=== PATIENT | female | born 1960 | race Caucasian/White ===

== ENCOUNTER 2020-07-26 14:57 | Outpatient (REF) | payer OTHER, SELFPAY ==
[2020-07-26 17:14] LABS: Alanine Aminotransferase 23 U/L (0-31); Albumin Level 4.5 g/dL (3.5-5.0); Alkaline Phosphatase 87 U/L (39-117); Anion Gap 12 (12-20); Aspartate Amino Transferase 27 U/L (5-31); Bilirubin Total 0.3 mg/dL (0.0-1.0); Blood Urea Nitrogen 10 mg/dL (9-16); Calcium 9.3 mg/dL (8.4-10.2); Carbon Dioxide 31 mmol/L (22-29); Chloride 101 mmol/L (96-108); Estimated Glomerular Filt Rate > 60; Glucose Random 88 mg/dL (60-115); Potassium 4.1 mmol/l (3.3-5.1); Sodium 140 mmol/L (135-145); Total Protein 7.7 g/dL (6.5-8.0)
[2020-07-26 17:29] LABS: TSH reflex Free T4 2.59 mIU/mL (0.32-4.0)
== END 2020-07-26 14:58 | disposition home or self-care (01) ==
LOC: HO.HMGCLDS 14:57
PROVIDERS: PCP Family Medicine; Visit Provider Family Medicine
DX: E03.9 Hypothyroidism, unspecified (principal); Z00.00 Encounter for general adult medical examination without abnormal findings
CPT/HCPCS: 80053; 84443

== ENCOUNTER 2020-10-16 12:01 | Outpatient (REF) | payer OTHER, SELFPAY ==
--- NOTE | ~2020-10-16 | XR_ITS ---
EXAMINATION: XR LUMBOSACRAL SPINE CLINICAL INFORMATION: Low back pain. COMPARISON: None TECHNIQUE: Three views of the lumbosacral spine. FINDINGS: There is maintained lumbar lordosis. The vertebral heights, alignment and disc heights are normal. No visible acute fracture, dislocation or subluxation seen. No lytic or sclerotic process. There is mild bilateral L5-S1 facet joint arthropathy. The SI joints are symmetrical. XR/XR lumbar spine 2-3V IMPRESSION: Mild bilateral L5-S1 facet joint arthropathy. Otherwise, unremarkable lumbar spine exam.
== END 2020-10-16 12:02 | disposition home or self-care (01) ==
LOC: HO.HMGCX 12:01
PROVIDERS: PCP Internal Medicine; Visit Provider Internal Medicine
DX: M54.5 Low back pain (principal)
CPT/HCPCS: 72100

== ENCOUNTER 2020-12-31 08:52 | Outpatient (REF) | payer OTHER, SELFPAY ==
--- NOTE | ~2020-12-31 | MM_ITS ---
EXAMINATION: MM SCREENING DIGITAL BREAST TOMOSYNTHESIS, BILATERAL CLINICAL INFORMATION: Screening. Asymptomatic. The lifetime risk of breast cancer based on the Tyrer-Cuzick Model is 8%. COMPARISON: Outside mammography: 02/01/2015, 04/10/2013 ([facility]) TECHNIQUE: Digital breast tomosynthesis is performed in both the craniocaudal and mediolateral oblique views along with computer-aided detection (CAD). Synthesized 2D images are generated from the tomosynthesis. FINDINGS: There are scattered areas of fibroglandular density (ACR BI-RADS breast composition Category b). Breast tissue composition borders on predominantly fatty. There is intramammary node again seen mid 9:00 right breast. Neither breast shows significant mass or architectural abnormality or abnormal calcifications. No significant changes. The axilla and skin contours are unremarkable. MM/MM tomosynthesis screening BI IMPRESSION: No mammographic evidence of malignancy. ASSESSMENT: BI-RADS 2: Benign RECOMMENDATION: Routine annual mammography screening. This patient's information was entered into a reminder system with a target due date for their next mammogram.
== END 2020-12-31 08:53 | disposition home or self-care (01) ==
LOC: HO.MAMMO 08:52
PROVIDERS: PCP Internal Medicine; Visit Provider Internal Medicine
DX: Z12.31 Encounter for screening mammogram for malignant neoplasm of breast (principal)
CPT/HCPCS: 77063; 77067

== ENCOUNTER 2021-03-22 10:58 | Outpatient (REF) | payer OTHER, SELFPAY ==
[2021-03-22 13:43] LABS: Hematocrit 36.2 % (37-47); Hemoglobin 11.7 g/dl (12.0-16.0); Mean Corpuscular HGB Conc 32.3 g/dl (31.0-35.0); Mean Corpuscular Hemoglobin 28.7 pg (27.0-33.0); Mean Corpuscular Volume 88.9 fL (80-98); Mean Platelet Volume 10.8 fL (9.4-12.3); Platelet Count 318 X10*3/uL (160-400); Red Blood Count 4.07 X10*6/uL (4.20-5.50); Red Cell Distribution Width 12.9 % (11.0-16.0); White Blood Count 7.9 X10*3/uL (4.8-10.8)
[2021-03-22 13:44] LABS: Cholesterol 216 mg/dL; HDL Cholesterol 46 mg/dL; LDL Cholesterol Calculated 144 mg/dl; Triglycerides 133 mg/dL
[2021-03-22 14:05] LABS: TSH reflex Free T4 3.09 uIU/mL (0.32-4.0)
== END 2021-03-22 10:59 | disposition home or self-care (01) ==
LOC: HO.HMGCLDS 10:58
PROVIDERS: PCP Internal Medicine; Visit Provider Internal Medicine
DX: Z00.00 Encounter for general adult medical examination without abnormal findings (principal); E03.9 Hypothyroidism, unspecified; E78.5 Hyperlipidemia, unspecified; M54.5 Low back pain
CPT/HCPCS: 36415; 80061; 84443; 85027

== ENCOUNTER 2021-09-20 10:59 | Outpatient (REF) | payer OTHER, SELFPAY ==
[2021-09-20 13:32] LABS: Alanine Aminotransferase 39 U/L (0-31); Albumin Level 4.3 g/dL (3.5-5.0); Alkaline Phosphatase 77 U/L (39-117); Anion Gap 14 (12-20); Aspartate Amino Transferase 45 U/L (5-31); Bilirubin Total 0.5 mg/dL (0.0-1.0); Blood Urea Nitrogen 13 mg/dL (9-16); Calcium 9.7 mg/dL (8.4-10.2); Carbon Dioxide 28 mmol/L (22-29); Chloride 103 mmol/L (96-108); Cholesterol 233 mg/dL; Estimated Glomerular Filt Rate > 60; Glucose Fasting 97 mg/dL (60-99); HDL Cholesterol 50 mg/dL; LDL Cholesterol Calculated 155 mg/dl; Potassium 4.6 mmol/L (3.3-5.1); Sodium 140 mmol/L (135-145); Total Protein 7.5 g/dL (6.5-8.0); Triglycerides 143 mg/dL
== END 2021-09-20 11:00 | disposition home or self-care (01) ==
LOC: HO.HMGCLDS 10:59
PROVIDERS: Visit Provider Internal Medicine
DX: E03.9 Hypothyroidism, unspecified (principal); E78.5 Hyperlipidemia, unspecified
CPT/HCPCS: 36415; 80053; 80061

== ENCOUNTER 2021-11-12 14:09 | Outpatient (REF) | payer OTHER, SELFPAY ==
--- NOTE | ~2021-11-12 | XR_ITS ---
EXAMINATION: BILATERAL HAND X-RAY CLINICAL INFORMATION: Bilateral hand pain COMPARISON: None TECHNIQUE: 4 views each hand FINDINGS: Left: Bone alignment is normal. No fracture or dislocation is seen. There is arthritis at the first ALF joint. Joint spaces are otherwise normal. Soft tissues are normal. Right: Bone alignment is normal. No fracture or dislocation is seen. There is arthritis at the first ALF joint and DIP joint of the second and fifth finger. Joint spaces are otherwise normal. Soft tissues are normal. XR/XR hand LT min 3V IMPRESSION: Arthritis at the bilateral first ALF joints, left greater than right. Mild arthritis at the DIP joint second and fifth fingers.
--- NOTE | ~2021-11-12 | XR_ITS ---
EXAMINATION: BILATERAL HAND X-RAY CLINICAL INFORMATION: Bilateral hand pain COMPARISON: None TECHNIQUE: 4 views each hand FINDINGS: Left: Bone alignment is normal. No fracture or dislocation is seen. There is arthritis at the first JAIL joint. Joint spaces are otherwise normal. Soft tissues are normal. Right: Bone alignment is normal. No fracture or dislocation is seen. There is arthritis at the first JAIL joint and DIP joint of the second and fifth finger. Joint spaces are otherwise normal. Soft tissues are normal. XR/XR hand RT min 3V IMPRESSION: Arthritis at the bilateral first JAIL joints, left greater than right. Mild arthritis at the DIP joint second and fifth fingers.
== END 2021-11-12 14:10 | disposition home or self-care (01) ==
LOC: HO.HOSX 14:09
PROVIDERS: PCP Internal Medicine; Visit Provider Physician Assistant
DX: M79.642 Pain in left hand (principal); M79.641 Pain in right hand; M67.40 Ganglion, unspecified site
CPT/HCPCS: 73130

== ENCOUNTER 2021-11-27 09:58 | Day surgery (SDC) | payer OTHER, SELFPAY ==
[2021-11-27 10:09] VITALS: BP 133/65; PULSE 65; RESP 16; TEMP 36.6; O2SAT 95; BMI 49.1
--- NOTE | 2021-11-27 11:08 | W.PM.OPN ---
Operative Note Operative Note Date of Service: 11/27/21 Narrative: Operative Note Preop diagnosis: 1. Left middle finger DIP joint osteoarthritis and mucous cyst Postop diagnosis: 1. same Procedure: 1. Left middle finger mucous cyst excision Surgeon: Nimisha Rojas MD Anesthesia: Digital block using 1% lidocaine with epinephrine Findings: mucous cyst, EBL: Less than 5 mL Tourniquet time: None Specimens: None Complications: None Disposition: Brought to recovery room in stable condition Plan: Follow-up for 7-10 days for wound check and suture removal Indications: The patient is 61 years old, with left middle finger D IP joint osteoarthritis and a mucous cyst that has been unresponsive to nonoperative management. The risks and benefits of operative treatment including but not limited to risk of damage to blood vessels, nerves, tendons, infection, persistent pain, persistent symptoms, recurrence or possible need for additional surgery were discussed with the patient and the patient wishes to proceed with surgery. Procedure: Once consent was obtained a digital block was performed in the preop area using a combination of 1% lidocaine with epinephrine. The patient was then brought back to the operating suite and placed on the operative table in supine position. A tourniquet was applied to the proximal aspect of the left upper extremity and the limb was prepped and draped in a standard surgical fashion. Once assured that we had a good block, a finger tourniquet was applied for few or than 20 minutes. An L-shaped incision was made over the dorsal aspect of the left middle finger distal phalanx. The incision was made through the skin to the subcutaneous tissues using a #15 blade. Careful dissection was made down to the level of the mucous cyst and extensor mechanism using iris scissors. The cyst had ruptured perhaps 2 weeks ago, was very small and was filled with clear viscous fluid consistent with a ganglion. This cystic material was removed from proximal to the eponychial fold. A rongeur was used to carefully remove some of the tissue felt to be the stalk coming from the radial aspect of the D IP joint. No significant periarticular osteophytes were appreciated, and so we did not perform an arthrotomy. Once satisfied, the wound was copiously irrigated with normal saline and hemostasis was obtained with a brief period of local pressure. The skin edges were reapproximated with some 5.0 Prolene suture material and a sterile dressing was applied. The patient appears to have tolerated the procedure well and with no complications. All digits were well vascularized at the conclusion of the case.
[2021-11-27 11:53] VITALS: BP 123/80; PULSE 60; RESP 16; TEMP 36.2; O2SAT 95
== END 2021-11-27 11:58 | disposition home or self-care (01) ==
PROVIDERS: PCP Internal Medicine; Visit Provider Orthopaedic Surgery
PROC: (CPT 26160; principal; 2021-11-27 11:00)
DX: M67.442 Ganglion, left hand (principal); M19.042 Primary osteoarthritis, left hand; L03.012 Cellulitis of left finger; Z79.899 Other long term (current) drug therapy; Z88.0 Allergy status to penicillin; Z88.2 Allergy status to sulfonamides; Z87.891 Personal history of nicotine dependence
CPT/HCPCS: 26160; J0171

== ENCOUNTER → 2021-12-16 15:45 | Outpatient (BNVA) | payer OTHER, SELFPAY | PROVIDERS: PCP Internal Medicine; Visit Provider Orthopaedic Surgery | DX: Z13.89 Encounter for screening for other disorder (principal) ==

== ENCOUNTER 2022-03-25 07:05 | Outpatient (REF) | payer OTHER, SELFPAY ==
[2022-03-25 11:31] LABS: Hematocrit 37.9 % (37.0-47.0); Hemoglobin 12.1 g/dl (12.0-16.0); Mean Corpuscular HGB Conc 31.9 g/dl (31.0-35.0); Mean Corpuscular Hemoglobin 28.5 pg (27.0-33.0); Mean Corpuscular Volume 89.4 fL (80.0-98.0); Mean Platelet Volume 10.8 fL (9.4-12.3); Platelet Count 303 X10*3/uL (160-400); Red Blood Count 4.24 X10*6/uL (4.20-5.50); Red Cell Distribution Width 13.1 % (11.0-16.0); White Blood Count 8.7 X10*3/uL (4.8-10.8)
[2022-03-25 11:48] LABS: Alanine Aminotransferase 32 U/L (0-31); Albumin Level 4.2 g/dL (3.5-5.0); Alkaline Phosphatase 75 U/L (39-117); Anion Gap 14 (12-20); Aspartate Amino Transferase 37 U/L (5-31); Bilirubin Total 0.6 mg/dL (0.0-1.0); Blood Urea Nitrogen 13 mg/dL (9-16); Calcium 9.3 mg/dL (8.4-10.2); Carbon Dioxide 28 mmol/L (22-29); Chloride 101 mmol/L (96-108); Cholesterol 227 mg/dL; Estimated Glomerular Filt Rate > 60; Glucose Fasting 97 mg/dL (60-99); HDL Cholesterol 49 mg/dL; LDL Cholesterol Calculated 145 mg/dl; Potassium 4.6 mmol/L (3.3-5.1); Sodium 138 mmol/L (135-145); Total Protein 7.3 g/dL (6.5-8.0); Triglycerides 167 mg/dL
[2022-03-25 12:13] LABS: TSH reflex Free T4 3.55 uIU/mL (0.32-4.0)
== END 2022-03-25 07:06 | disposition home or self-care (01) ==
LOC: HO.HMGCLDS 07:05
PROVIDERS: PCP Internal Medicine; Visit Provider Internal Medicine
DX: E03.9 Hypothyroidism, unspecified (principal); E78.5 Hyperlipidemia, unspecified
CPT/HCPCS: 36415; 80053; 80061; 84443; 85027

== ENCOUNTER → 2022-07-16 15:07 | Outpatient (BNVA) | payer OTHER, SELFPAY | PROVIDERS: PCP Internal Medicine; Visit Provider Orthopaedic Surgery | DX: M18.11 Unilateral primary osteoarthritis of first carpometacarpal joint, right hand (principal); M19.041 Primary osteoarthritis, right hand; M19.042 Primary osteoarthritis, left hand | CPT/HCPCS: 20600; J1100 ==

== ENCOUNTER 2022-09-26 09:54 | Outpatient (REF) | payer OTHER, SELFPAY ==
[2022-09-26 11:21] LABS: Alanine Aminotransferase 32 U/L (0-31); Albumin Level 4.2 g/dL (3.5-5.0); Alkaline Phosphatase 76 U/L (39-117); Anion Gap 13 (12-20); Aspartate Amino Transferase 39 U/L (5-31); Bilirubin Total 0.7 mg/dL (0.0-1.0); Blood Urea Nitrogen 14 mg/dL (9-16); Calcium 9.3 mg/dL (8.4-10.2); Carbon Dioxide 26 mmol/L (22-29); Chloride 104 mmol/L (96-108); Cholesterol 228 mg/dL; Estimated Glomerular Filt Rate > 60; Glucose Fasting 99 mg/dL (60-99); HDL Cholesterol 50 mg/dL; LDL Cholesterol Calculated 149 mg/dl; Potassium 4.6 mmol/L (3.3-5.1); Sodium 138 mmol/L (135-145); Total Protein 7.2 g/dL (6.5-8.0); Triglycerides 148 mg/dL
== END 2022-09-26 09:55 | disposition home or self-care (01) ==
LOC: HO.HMGCLDS 09:54
PROVIDERS: PCP Internal Medicine; Visit Provider Internal Medicine
DX: Z00.00 Encounter for general adult medical examination without abnormal findings (principal); E78.5 Hyperlipidemia, unspecified
CPT/HCPCS: 36415; 80053; 80061

== ENCOUNTER 2022-09-28 14:39 | Outpatient (REF) | payer OTHER, SELFPAY ==
--- NOTE | ~2022-09-28 | XR_ITS ---
EXAMINATION: XR FOOT, LEFT CLINICAL INFORMATION: Injury. COMPARISON: None TECHNIQUE: AP, lateral, and oblique views of the left foot. FINDINGS: There is cortical thickening and periosteal reaction of the proximal phalanx of the third toe. Differential would include healing fracture, stress fracture and infection. Clinical correlation recommended.. Healed fracture of the proximal phalanx of the fifth toe. No other fracture. Hallux valgus deformity and degenerative change at the first MTP joint. Small plantar calcaneal spur. Normal soft tissues. XR/XR foot LT 2V IMPRESSION: Abnormal proximal phalanx of the third toe with cortical thickening and periosteal reaction. Differential would include a healing fracture, stress fracture and infection. Clinical correlation recommended.
== END 2022-09-28 14:40 | disposition home or self-care (01) ==
LOC: HO.HMGCX 14:39
PROVIDERS: PCP Internal Medicine; Visit Provider Internal Medicine
DX: S99.922A Unspecified injury of left foot, initial encounter (principal)
CPT/HCPCS: 73620

== ENCOUNTER 2023-03-27 10:35 | Outpatient (REF) | payer OTHER, SELFPAY ==
[2023-03-27 13:24] LABS: MANUAL DIFF FLAG NO
[2023-03-27 13:33] LABS: Basophils Percent Auto 0.5 % (0-2); Eosinophils Absolute Auto 0.2 X10*3/uL (0.0-0.4); Eosinophils Percent Auto 2.4 % (0-4); Hematocrit 36.1 % (37.0-47.0); Hemoglobin 11.6 g/dl (12.0-16.0); Imm Gran Abs Auto 0.03 X10*3/uL (0.00-0.03); Imm Gran Pct Auto 0.4 % (0.0-0.4); Lymphocytes Absolute Auto 1.8 X10*3/uL (1.2-4.9); Lymphocytes Percent Auto 23.3 % (20-40); Mean Corpuscular HGB Conc 32.1 g/dl (31.0-35.0); Mean Corpuscular Hemoglobin 28.9 pg (27.0-33.0); Mean Corpuscular Volume 89.8 fL (80.0-98.0); Monocytes Absolute Auto 0.7 X10*3/uL (0.1-1.2); Monocytes Percent Auto 9.2 % (2-11); Neutrophils Absolute Auto 4.8 x10*3/uL (2.0-8.3); Neutrophils Percent Auto 64.2 % (45-73); Platelet Count 287 X10*3/uL (160-400); Red Blood Count 4.02 X10*6/uL (4.20-5.50); Red Cell Distribution Width 13.3 % (11.0-16.0); White Blood Count 7.5 X10*3/uL (4.8-10.8)
[2023-03-27 13:52] LABS: Alanine Aminotransferase 25 U/L (0-31); Albumin Level 3.9 g/dL (3.5-5.0); Alkaline Phosphatase 67 U/L (39-117); Anion Gap 12 (12-20); Aspartate Amino Transferase 28 U/L (5-31); Bilirubin Total 0.5 mg/dL (0.0-1.0); Blood Urea Nitrogen 16 mg/dL (9-16); Calcium 9.3 mg/dL (8.4-10.2); Carbon Dioxide 27 mmol/L (22-29); Chloride 106 mmol/L (96-108); Cholesterol 198 mg/dL; Estimated Glomerular Filt Rate > 60; Glucose Fasting 100 mg/dL (60-99); HDL Cholesterol 51 mg/dL; LDL Cholesterol Calculated 128 mg/dl; Potassium 4.1 mmol/L (3.3-5.1); Sodium 141 mmol/L (135-145); Triglycerides 96 mg/dL
[2023-03-27 14:07] LABS: Vitamin D 25-OH Total 46.3 ng/mL (>30)
== END 2023-03-27 10:36 | disposition home or self-care (01) ==
LOC: HO.HMGCLDS 10:35
PROVIDERS: PCP Internal Medicine; Visit Provider Internal Medicine
DX: Z00.00 Encounter for general adult medical examination without abnormal findings (principal); E03.9 Hypothyroidism, unspecified; E78.5 Hyperlipidemia, unspecified
CPT/HCPCS: 36415; 80053; 80061; 82306; 84443; 85025

== ENCOUNTER 2023-03-30 07:58 | Outpatient (AMB) | payer OTHER, SELFPAY ==
--- NOTE | 2023-03-30 08:02 | A.OFFPC_ITS ---
Vital Signs 03/30/23 08:03 Height 5 ft 7 in Weight 282 lb BMI 44.2 BP 116/62 Blood Pressure Location Lt brachial Position Sitting Pulse 52 Pulse Source Pulse Oximeter Pulse Oximetry (%) 95 Oxygen Delivery Method Room Air Intake Visit Reasons: PE Intake Note: Pt is here today for PE. Pt states that her last pap was couple years ago. Allergies amoxicillin [AMOXICILLIN] Allergy (Unknown, Verified 03/30/23 08:04) stomach upset, Sulfa (Sulfonamide Antibiotics) Allergy (Unknown, Verified 03/30/23 08:04) rash sulfamethoxazole [From Bactrim] Allergy (Unknown, Verified 03/30/23 08:04) Rash trimethoprim [From Bactrim] Allergy (Unknown, Verified 03/30/23 08:04) Rash Medication List - Last Reconciled 03/30/23 by Coral Boston MD apremilast (Otezla) 30 mg PO BID atenolol 75 mg (3 x 25 mg) PO DAILY levothyroxine 100 mcg PO DAILY pravastatin 20 mg PO DAILY valacyclovir 1,000 mg PO TID Tobacco use date assessed: 03/30/23 Dental Screening Dental Screen Date: 03/30/23 Did you have a dental visit in the last 12 months?: Yes Did you have a dental problem in the last 6 months where you did not have access to dental care?: No Was dental information given to patient?: Patient has dentist HPI PE HPI Details Pt presents for PE. She was hypnotized and lost 20 lb since December. [facility] Medical History Annual physical exam Depression Heart palpitations Hyperlipidemia Hypothyroidism Lumbar back pain Normal Pap smear Paronychia of finger of left hand Psoriasis Surgical History H/O colonoscopy History of carpal tunnel surgery History of left knee surgery History of tonsillectomy Family History Father Myocardial infarction Mother Lung cancer Social History Housing: House Alcohol intake: current Alcohol intake frequency: holidays/special occasions only Patient Tobacco Use Status: Former Tobacco user Quit Date: 37 years old e-Cigarette/Vaping Use: Never Used Current occupational status: employed Current occupation: Call call center trainer/rt hand Cognitive needs: No Hearing needs: No Vision needs: Yes Questionnaire Thrive Questionnaire Date Thrive assessed: 09/28/22 I am a: Patient What is your living situation today?: I have a steady place to live Within the past 12 months, did the food you bought not last and you didn't have the money to get more?: Never true Within the past 12 months, did you worry whether your food would run out before you got money to buy more?: Never true AUDIT C Alcohol Use Questionnaire (AUDIT-C) 1. How often do you have a drink containing alcohol?: Monthly or less 2. How many drinks containing alcohol do you have on a typical day when you are drinking?: 1 or 2 3. How often do you have six or more drinks on one occasion?: Never Total Score: 1 GREGORIO-7 AMB Questionnaire GREGORIO-7 Date GREGORIO - 7 assessed: 09/28/22 Feeling nervous, anxious, or on edge: 0 = Not at all Not being able to stop or control worryin = Not at all Worrying too much about different things: 0 = Not at all Trouble relaxin = Not at all Being so restless that it is hard to sit still: 0 = Not at all Becoming easily annoyed or irritable: 1 = Several days Feeling afraid as if something awful might happen: 0 = Not at all Total GREGORIO-7 score (0-4 normal; 5-9 mild; 10-14 moderate; 15-21 severe): 1 Source: Developed by Drs. Vick Singh, Cassidy Miller, Donald Miles and colleagues, with an educational jayda from [employer]. Review of Systems Const All systems reviewed & are unremarkable except as noted in HPI and below Reports no additional complaints Eyes Reports no additional complaints ENT Reports no additional complaints Card Reports no additional complaints Resp Reports no additional complaints GI Reports no additional complaints Reports no additional complaints Physical exam (Primary Care) Vital Signs: Last Vital Signs Pulse 52 03/30/23 08:03 BP 116/62 03/30/23 08:03 Pulse Ox 95 03/30/23 08:03 Oxygen Delivery Method Room Air 03/30/23 08:03 BMI result Body Mass Index 44.2 Tobacco/Smoking Status: Tobacco use Status Tobacco use date assessed 03/30/23 03/30/23 08:09 Patient Tobacco Use Status Former Tobacco user 03/30/23 08:09 e-Cigarette/Vaping Use Never Used 03/30/23 08:09 Thrive Assessment: Date of Thrive Assessment Date Thrive assessed 09/28/22 03/30/23 08:09 Const General: no acute distress HENMT Head: Yes normal to inspection Ears: hearing grossly normal bilaterally Face and sinus: Yes normal facial exam Mouth: Normal oral and palatal mucosa present Eyes General: appearance normal, both eyes and all related structures Neck Neck: Yes no lymphadenopathy and Yes supple Resp Effort & Inspection: normal respiratory effort Auscultation: clear to auscultation bilaterally Cardio Rhythm: regular rhythm Heart sounds: S1 normal heart sound present and S2 normal heart sound present GI Inspection: Yes normal to inspection Palpation (GI): Soft to palpation Percussion: Yes normal to percussion Auscultation: normal bowel sounds Assessment and Plan Assessment & Plan (1) Hypothyroidism: Comment: , Code(s): E03.9 - Hypothyroidism, unspecified Plan: Continue levothyroxine (2) Hyperlipidemia: Code(s): E78.5 - Hyperlipidemia, unspecified Plan: Continue low-cholesterol diet (3) Annual physical exam: Code(s): Z00.00 - Encounter for general adult medical examination without abnormal findings Plan: Well-balanced diet and regular exercise discussed with the patient. she is up-to-date with mammogram and Pap smear by head grower. Patient declined colonoscopy she will do Cologuard. Weight loss discussed with the patient (4) Psoriasis: Code(s): L40.9 - Psoriasis, unspecified Orders: Orders Comprehensive [place]. Panel Fast 6 Months E03.9 - Hypothyroidism, unspecified, E78.5 - Hyperlipidemia, unspecified Lipid Panel 6 Months E03.9 - Hypothyroidism, unspecified, E78.5 - Hyperlipidemia, unspecified TSH reflex Free T4 6 Months E03.9 - Hypothyroidism, unspecified, E78.5 - Hyperlipidemia, unspecified Complete Blood Count Auto Diff 6 Months E03.9 - Hypothyroidism, unspecified, E78.5 - Hyperlipidemia, unspecified Medications: Discontinued pravastatin Discontinued Reason: Doctor's Order 20 mg PO DAILY 90 tabs 1RF Coding Level of Care Code Est Pt Prev Care 40-64y(43448) Diagnoses Hypothyroidism E03.9 Hyperlipidemia E78.5 Annual physical exam Z00.00 Psoriasis L40.9
[2023-03-30 08:03] VITALS: BP 116/62; PULSE 52; O2SAT 95; BMI 44.2
== END 2023-03-30 08:50 | disposition home or self-care (01) ==
PROVIDERS: Visit Provider Internal Medicine
DX: E03.9 Hypothyroidism, unspecified (principal); E78.5 Hyperlipidemia, unspecified; Z00.00 Encounter for general adult medical examination without abnormal findings; L40.9 Psoriasis, unspecified
CPT/HCPCS: 99396

== ENCOUNTER 2023-10-04 12:36 | Outpatient (REF) | payer OTHER, SELFPAY ==
[2023-10-04 15:57] LABS: MANUAL DIFF FLAG NO
[2023-10-04 16:00] LABS: Basophils Percent Auto 0.6 % (0-2); Eosinophils Absolute Auto 0.3 X10*3/uL (0.0-0.4); Eosinophils Percent Auto 3.6 % (0-4); Hematocrit 37.5 % (37.0-47.0); Hemoglobin 12.1 g/dl (12.0-16.0); Imm Gran Abs Auto 0.02 X10*3/uL (0.00-0.03); Imm Gran Pct Auto 0.3 % (0.0-0.4); Lymphocytes Absolute Auto 1.9 X10*3/uL (1.2-4.9); Lymphocytes Percent Auto 27.6 % (20-40); Mean Corpuscular HGB Conc 32.3 g/dl (31.0-35.0); Mean Corpuscular Hemoglobin 28.8 pg (27.0-33.0); Mean Corpuscular Volume 89.3 fL (80.0-98.0); Mean Platelet Volume 10.8 fL (9.4-12.3); Monocytes Absolute Auto 0.7 X10*3/uL (0.1-1.2); Monocytes Percent Auto 9.4 % (2-11); Neutrophils Percent Auto 58.5 % (45-73); Platelet Count 273 X10*3/uL (160-400); Red Cell Distribution Width 13.4 % (11.0-16.0); White Blood Count 6.9 X10*3/uL (4.8-10.8)
[2023-10-04 16:35] LABS: Alanine Aminotransferase 23 U/L (0-31); Albumin Level 4.3 g/dL (3.5-5.0); Alkaline Phosphatase 62 U/L (39-117); Anion Gap 14 (12-20); Aspartate Amino Transferase 32 U/L (5-31); Bilirubin Total 0.6 mg/dL (0.0-1.0); Blood Urea Nitrogen 15 mg/dL (9-16); Calcium 9.6 mg/dL (8.4-10.2); Carbon Dioxide 28 mmol/L (22-29); Chloride 102 mmol/L (96-108); Cholesterol 220 mg/dL (<200); Estimated Glomerular Filt Rate > 60; Glucose Fasting 90 mg/dL (60-99); HDL Cholesterol 55 mg/dL (>40); LDL Cholesterol Calculated 140 mg/dL (<100); Potassium 4.5 mmol/L (3.3-5.1); Sodium 139 mmol/L (135-145); Total Protein 7.9 g/dL (6.5-8.0); Triglycerides 128 mg/dL (<150)
== END 2023-10-04 12:37 | disposition home or self-care (01) ==
LOC: HO.HMGCLDS 12:36
PROVIDERS: PCP Internal Medicine; Visit Provider Internal Medicine
DX: E03.9 Hypothyroidism, unspecified (principal); E78.5 Hyperlipidemia, unspecified
CPT/HCPCS: 36415; 80053; 80061; 84443; 85025

== ENCOUNTER 2023-10-08 08:32 | Outpatient (AMB) | payer OTHER, SELFPAY ==
--- NOTE | 2023-10-08 08:38 | A.OFFPC_ITS ---
Vital Signs 10/08/23 08:39 Height 5 ft 7 in Weight 288 lb BMI 45.1 BP 110/64 Blood Pressure Location Lt brachial Position Sitting Pulse 54 Pulse Source Pulse Oximeter Pulse Oximetry (%) 96 Oxygen Delivery Method Room Air Intake Visit Reasons: 6 month fu hyperlipid Intake Note: Pt is here today for 6 months follow up visit. Allergies amoxicillin [AMOXICILLIN] Allergy (Unknown, Verified 10/08/23 08:41) stomach upset, Sulfa (Sulfonamide Antibiotics) Allergy (Unknown, Verified 10/08/23 08:41) rash sulfamethoxazole [From Bactrim] Allergy (Unknown, Verified 10/08/23 08:41) Rash trimethoprim [From Bactrim] Allergy (Unknown, Verified 10/08/23 08:41) Rash Medication List - Last Reconciled 10/08/23 by Coral Boston MD atenolol 75 mg (3 x 25 mg) PO DAILY levothyroxine 100 mcg PO DAILY risankizumab-rzaa (Skyrizi) 150 mg subcut Q12W valacyclovir 1,000 mg PO TID Tobacco use date assessed: 10/08/23 Dental Screening Dental Screen Date: 10/08/23 Did you have a dental visit in the last 12 months?: Yes Did you have a dental problem in the last 6 months where you did not have access to dental care?: No Was dental information given to patient?: Patient has dentist HPI 6 month fu hyperlipid HPI Details Pt presents for follow-up of hypertension and hypothyroidism stable on current medications. [facility] Medical History (Updated 10/08/23 @ 15:30 by Coral Boston MD) Heart palpitations Psoriasis Paronychia of finger of left hand Lumbar back pain Hyperlipidemia Annual physical exam Normal Pap smear Hypothyroidism Depression Surgical History H/O colonoscopy History of left knee surgery History of carpal tunnel surgery History of tonsillectomy Family History Father Myocardial infarction Mother Lung cancer Social History Housing: House Alcohol intake: current Alcohol intake frequency: holidays/special occasions only Patient Tobacco Use Status: Former Tobacco user Quit Date: 37 years old e-Cigarette/Vaping Use: Never Used Current occupational status: employed Current occupation: Call service center coordinator/rt hand Cognitive needs: No Hearing needs: No Vision needs: Yes Questionnaire Thrive Questionnaire Date Thrive assessed: 09/28/22 AUDIT C Alcohol Use Questionnaire (AUDIT-C) 1. How often do you have a drink containing alcohol?: Monthly or less 2. How many drinks containing alcohol do you have on a typical day when you are drinking?: 1 or 2 3. How often do you have six or more drinks on one occasion?: Never Total Score: 1 GREGORIO-7 AMB Questionnaire GREGORIO-7 Date GREGORIO - 7 assessed: 09/28/22 Source: Developed by Drs. Vick Singh, Cassidy Miller, Donald Miles and colleagues, with an educational jayda from [employer]. Review of Systems Const All systems reviewed & are unremarkable except as noted in HPI and below Reports no additional complaints Eyes Reports no additional complaints ENT Reports no additional complaints Card Reports no additional complaints Resp Reports no additional complaints GI Reports no additional complaints Reports no additional complaints Musc Reports no additional complaints Physical exam (Primary Care) Vital Signs: Last Vital Signs Pulse 54 10/08/23 08:39 BP 110/64 10/08/23 08:39 Pulse Ox 96 10/08/23 08:39 Oxygen Delivery Method Room Air 10/08/23 08:39 BMI result Body Mass Index 45.1 Tobacco/Smoking Status: Tobacco use Status Tobacco use date assessed 10/08/23 10/08/23 08:44 Patient Tobacco Use Status Former Tobacco user 10/08/23 08:44 e-Cigarette/Vaping Use Never Used 10/08/23 08:44 Thrive Assessment: Date of Thrive Assessment Date Thrive assessed 09/28/22 10/08/23 08:44 Const General: no acute distress HENMT Head: Yes normal to inspection Face and sinus: Yes normal facial exam Mouth: Normal oral and palatal mucosa present Throat: Yes posterior oropharynx normal Eyes General: appearance normal, both eyes and all related structures Neck Neck: Yes supple Resp Effort & Inspection: normal respiratory effort Auscultation: clear to auscultation bilaterally Cardio Rhythm: regular rhythm Heart sounds: S1 normal heart sound present and S2 normal heart sound present GI Inspection: Yes normal to inspection Assessment and Plan Assessment & Plan (1) Knee pain, right: Code(s): M25.561 - Pain in right knee Plan: Obtain x-ray of right knee and referred to physical therapy (2) Heart palpitations: Comment: negative cardiac w/u Code(s): R00.2 - Palpitations Plan: Obtain 3 day Holter to evaluate for frequent PVC (3) Hypothyroidism: Comment: , Code(s): E03.9 - Hypothyroidism, unspecified Plan: Continue levothyroxine (4) Hypertension: Code(s): I10 - Essential (primary) hypertension Plan: Continue current medication Orders: Orders ECG 3 day holter monitor Today R00.2 - Palpitations PT Evaluation and Treatment Today M25.561 - Pain in right knee Medications: New valacyclovir 1,000 mg PO TID 30 tabs 0RF Coding Level of Care Code Est Pt Level 4 (69345) Diagnoses Knee pain, right M25.561 Heart palpitations R00.2 Hypothyroidism E03.9 Hypertension I10
[2023-10-08 08:39] VITALS: BP 110/64; PULSE 54; O2SAT 96; BMI 45.1
== END 2023-10-08 09:20 | disposition home or self-care (01) ==
PROVIDERS: PCP Internal Medicine; Visit Provider Internal Medicine
DX: M25.561 Pain in right knee (principal); R00.2 Palpitations; E03.9 Hypothyroidism, unspecified; I10 Essential (primary) hypertension
CPT/HCPCS: 99214

== ENCOUNTER 2023-10-08 09:21 | Outpatient (REF) | payer OTHER, SELFPAY ==
--- NOTE | ~2023-10-08 | XR_ITS ---
EXAMINATION: XR KNEE, RIGHT CLINICAL INFORMATION: Right knee pain. COMPARISON: 09/28/2011 TECHNIQUE: Four views of the right knee. FINDINGS: There is normal alignment. Mild medial tibiofemoral cartilage space loss. Mild patellofemoral cartilage space loss. Tricompartmental osteophytes are present. No significant suprapatellar joint effusion. No displaced fracture. XR/XR knee RT 4V IMPRESSION: Mild osteoarthritis of the right knee.
== END 2023-10-08 09:22 | disposition home or self-care (01) ==
LOC: HO.HMGCX 09:21
PROVIDERS: PCP Internal Medicine; Visit Provider Internal Medicine
DX: M25.561 Pain in right knee (principal)
CPT/HCPCS: 73564

== ENCOUNTER → 2023-10-22 08:51 | Outpatient (REF) | payer OTHER, SELFPAY ==
--- NOTE | 2023-10-22 08:55 | HM_ITS ---
Conclusion: 1. Patient was monitored for total period of 2 days and 23 hours 2. Baseline was normal sinus rhythm with average heart of 61 beats per minute 3. Frequent sinus bradycardia noted with 46% of time heart rate below 60 beats per minute with no significant pauses 4. Occasional PACs and PVCs noted with total burden of 0.8% for both 5. Patient reported to events correlated with PVCs MTDD
== END ==
LOC: HO.CARD 08:51
PROVIDERS: PCP Internal Medicine; Visit Provider Internal Medicine
DX: R00.2 Palpitations (principal)
CPT/HCPCS: 93242

== ENCOUNTER → 2023-10-22 08:55 | Outpatient (BNV) | payer OTHER, SELFPAY | PROVIDERS: PCP Internal Medicine; Visit Provider Internal Medicine Cardiovascular Disease | DX: R00.1 Bradycardia, unspecified (principal) | CPT/HCPCS: 93244 ==

== ENCOUNTER 2024-04-07 08:03 | Outpatient (AMB) | payer OTHER, SELFPAY ==
[2024-04-07 08:04] VITALS: BP 120/68; PULSE 59; O2SAT 98; BMI 47.6
--- NOTE | 2024-04-07 08:04 | MHC.PC.OV ---
Vital Signs 04/07/24 08:04 Height 5 ft 7 in Weight 304 lb BMI 47.6 BP 120/68 Blood Pressure Location Lt brachial Position Sitting Pulse 59 Pulse Source Pulse Oximeter Pulse Oximetry (%) 98 Oxygen Delivery Method Room Air Intake Visit Reasons: Annual PE Intake Note: Pt is here today for PE. Pt is due for mammogram. Allergies amoxicillin [AMOXICILLIN] Allergy (Unknown, Verified 04/07/24 08:06) stomach upset, Sulfa (Sulfonamide Antibiotics) Allergy (Unknown, Verified 04/07/24 08:06) rash sulfamethoxazole [From Bactrim] Allergy (Unknown, Verified 04/07/24 08:06) Rash trimethoprim [From Bactrim] Allergy (Unknown, Verified 04/07/24 08:06) Rash Medication List - Last Reconciled 04/07/24 by Coral Boston MD atenolol 75 mg (3 x 25 mg) PO DAILY levothyroxine 100 mcg PO DAILY valacyclovir 1,000 mg PO TID Tobacco use date assessed: 04/07/24 Dental Screening Dental Screen Date: 04/07/24 Did you have a dental visit in the last 12 months?: Yes Did you have a dental problem in the last 6 months where you did not have access to dental care?: No Was dental information given to patient?: Patient has dentist HPI Annual PE HPI Details Pt presents for PE. Pt c/o positional vertigo on and off for 2 weeks getting better. PFSH Medical History Heart palpitations Psoriasis Paronychia of finger of left hand Lumbar back pain Hyperlipidemia Annual physical exam Normal Pap smear Hypothyroidism Depression Surgical History H/O colonoscopy History of left knee surgery History of carpal tunnel surgery History of tonsillectomy Family History Father Myocardial infarction Mother Lung cancer Social History Housing: House Alcohol intake: current Alcohol intake frequency: holidays/special occasions only Patient Tobacco Use Status: Former Tobacco user e-Cigarette/Vaping Use: Never Used service: No Current occupational status: employed Current occupation: Call contact center associate/rt hand Cognitive needs: No Hearing needs: No Vision needs: Yes Questionnaire PHQ-9 Over the last 2 weeks, how often have you been bothered by any of the following problems? 1. Little interest or pleasure in doing things: not at all 2. Feeling down, depressed, or hopeless: not at all 3. Trouble falling or staying asleep, or sleeping too much: not at all 4. Feeling tired or having little energy: several days 5. Poor appetite or overeating: not at all 6. Feeling bad about yourself - or that you are a failure or have let yourself or your family down: not at all 7. Trouble concentrating on things, such as reading the newspaper or watching television: not at all 8. Moving or speaking so slowly that other people could have noticed. Or the opposite - being so fidgety or restless that you have been moving around a lot more than usual: not at all 9. Thoughts that you would be better off or of hurting yourself in some way: not at all Total score: 1 Depression Screening Interpretation: Negative Depression Screening Done: Yes 26539 - PHQ-9 Billing: Yes Source: Developed by Drs. Vick Singh, Cassidy Miller, Donald Miles and colleagues, with an educational jayda from [employer]. Thrive Questionnaire Date Thrive assessed: 04/07/24 I am a: Patient What is your living situation today?: I have a steady place to live Within the past 12 months, did the food you bought not last and you didn't have the money to get more?: Never true Within the past 12 months, did you worry whether your food would run out before you got money to buy more?: Never true Do you have trouble paying for medicines?: No Do you have trouble getting transportation to medical appointments?: No Do you have trouble paying your heating and electricity bill?: No Do you have trouble taking care of your child, family member or friend?: No Do you have trouble with day-to-day activities such as bathing, preparing meals, shopping, managing finances, etc.?: No Are you currently unemployed and looking for a job?: No Are you interested in more education?: No Please select the resources that you would like help with: None Currently or been in a relationship where the following occur: No concerns reported THRIVE Score: 0 AUDIT C Alcohol Use Questionnaire (AUDIT-C) 1. How often do you have a drink containing alcohol?: Monthly or less 2. How many drinks containing alcohol do you have on a typical day when you are drinking?: 1 or 2 3. How often do you have six or more drinks on one occasion?: Never Total Score: 1 GREGORIO-7 AMB Questionnaire GREGORIO-7 Date GREGORIO - 7 assessed: 04/07/24 Feeling nervous, anxious, or on edge: 0 = Not at all Not being able to stop or control worryin = Not at all Worrying too much about different things: 0 = Not at all Trouble relaxin = Not at all Being so restless that it is hard to sit still: 0 = Not at all Becoming easily annoyed or irritable: 0 = Not at all Feeling afraid as if something awful might happen: 0 = Not at all Total GREGORIO-7 score (0-4 normal; 5-9 mild; 10-14 moderate; 15-21 severe): 0 Source: Developed by Drs. Vick Singh, Cassidy Miller, Donald Miles and colleagues, with an educational jayda from [employer]. GREGORIO-7 Assessment Billing GREGORIO-7 Assessment Tool: GREGORIO-7 Assessment 81287 Review of Systems Const All systems reviewed & are unremarkable except as noted in HPI and below Reports no additional complaints Eyes Reports no additional complaints ENT Reports no additional complaints Card Reports no additional complaints Resp Reports no additional complaints GI Reports no additional complaints Reports no additional complaints Physical exam (Primary Care) Vital Signs: Last Vital Signs Pulse 59 04/07/24 08:04 BP 120/68 04/07/24 08:04 Pulse Ox 98 04/07/24 08:04 Oxygen Delivery Method Room Air 04/07/24 08:04 BMI result Body Mass Index 47.6 Tobacco/Smoking Status: Tobacco use Status Tobacco use date assessed 04/07/24 04/07/24 08:09 Patient Tobacco Use Status Former Tobacco user 04/07/24 08:09 e-Cigarette/Vaping Use Never Used 04/07/24 08:09 PHQ-9: PHQ-9 Score PHQ-9: Total score 1 04/07/24 08:28 Depression Screening Interpretation: Negative Thrive Assessment: Date of Thrive Assessment Date Thrive assessed 04/07/24 04/07/24 08:09 Currently or been in a relationship where the following occur: No concerns reported Const General: no acute distress HENMT Head: Yes normal to inspection Ears: hearing grossly normal bilaterally General nose exam: Normal external nose present Face and sinus: Yes normal facial exam Throat: Yes posterior oropharynx normal Eyes General: appearance normal, both eyes and all related structures Neck Neck: Yes no lymphadenopathy and Yes supple Resp Effort & Inspection: normal respiratory effort Auscultation: clear to auscultation bilaterally Cardio Rhythm: regular rhythm Heart sounds: S1 normal heart sound present and S2 normal heart sound present GI Inspection: Yes normal to inspection Palpation (GI): Soft to palpation Percussion: Yes normal to percussion Auscultation: normal bowel sounds Assessment and Plan Assessment & Plan (1) Hypertension: Code(s): I10 - Essential (primary) hypertension Plan: cont Atenolol (2) Hypothyroidism: Comment: , Code(s): E03.9 - Hypothyroidism, unspecified Plan: cont Levothyroxine (3) Annual physical exam: Code(s): Z00.00 - Encounter for general adult medical examination without abnormal findings Plan: well balanced diet, exercise, (4) Hyperlipidemia: Code(s): E78.5 - Hyperlipidemia, unspecified Plan: Continue low-cholesterol diet check lipid profile Orders: Orders UA w Microscopic 1 Year E03.9 - Hypothyroidism, unspecified, I10 - Essential (primary) hypertension, Z00.00 - Encounter for general adult medical examination without abnormal findings Comprehensive [place]. Panel Fast 1 Year E03.9 - Hypothyroidism, unspecified, I10 - Essential (primary) hypertension, Z00.00 - Encounter for general adult medical examination without abnormal findings Complete Blood Count Auto Diff 1 Year E03.9 - Hypothyroidism, unspecified, I10 - Essential (primary) hypertension, Z00.00 - Encounter for general adult medical examination without abnormal findings Lipid Panel 1 Year E03.9 - Hypothyroidism, unspecified, I10 - Essential (primary) hypertension, Z00.00 - Encounter for general adult medical examination without abnormal findings TSH reflex Free T4 1 Year E03.9 - Hypothyroidism, unspecified, I10 - Essential (primary) hypertension, Z00.00 - Encounter for general adult medical examination without abnormal findings Coding Level of Care Code Est Pt Prev Care 40-64y(81548) Diagnoses Hypertension I10 Hypothyroidism E03.9 Annual physical exam Z00.00 Hyperlipidemia E78.5 Additional Codes GREGORIO-7 Assessment Billing - GREGORIO-7 Assessment Tool: GREGORIO-7 Assessment 32154 ([id number])
== END 2024-04-07 08:47 | disposition home or self-care (01) ==
PROVIDERS: PCP Internal Medicine; Visit Provider Internal Medicine
DX: Z00.00 Encounter for general adult medical examination without abnormal findings (principal); I10 Essential (primary) hypertension; E03.9 Hypothyroidism, unspecified; E78.5 Hyperlipidemia, unspecified
CPT/HCPCS: 99396

== ENCOUNTER 2025-04-18 08:54 | Outpatient (REF) | payer OTHER, SELFPAY ==
--- OUTSIDE RECORDS SUMMARY | 2025-04-18 09:29 | XMS_ITS | Patient Health Record ---
[facility] Address [address] [place] [address] Care Team Providers Care Doubler Helper Name Role Phone Real Pandya MD Primary Care Provider Susan Higginbotham Unavailable [phone] Allergies Allergen (clinical drug ingredient) Drug/Non Drug Allergy documented on EMR Reaction Allergy Type Onset Date Status Penicillin Unknown Drug Allergy Active Reason For Referral No Information Medications Medication SIG (Take, Route, Frequency, Duration) Notes Start Date End Date Status Levothyroxine Sodium 100 MCG 1 tablet Or ally Once a day Active Atenolol Active Physical Therapy 3-4x per week for 3- 4 weeks 10/12/2014 Active Problems Problem Type SNOMED Code ICD Code Onset Dates Problem Status W/U Status Risk Notes Problem Bursitis (12823988) Bursitis (727.3) Active confirmed Problem Calcaneal spur (69313075) Calcaneal spur (726.73) Active confirmed Problem Myositis (71407954) Myositis (729.1) Active confirmed Problem Pain in limb (42518612) Pain in Limb (729.5) Active confirmed Problem Plantar fasciitis (750001316) Plantar Fasciitis (728.71) Active confirmed Plan Of Treatment Pending Test Test Name Order Date [id number] TENDON SHEATH/LIGAMENT 0 10/12/2014 Insurance Providers Payer Name Payer Address Payer Phone Subscriber Number Group Number Insured Name Patient Relationship to Insured Coverage Start Date Coverage End Date [facility] Others [address] [place] [address] [id number] Lola Hou Self - patient is the insured Medical (General) History Medical History History ICD Code Eczema Thyroid disorder Chicken pox Measles Surgical History Surgery Date(Month/Year) tonsillectomy carpal tunnel right hand 05/2013 Left knee sx 12/27/2014
--- OUTSIDE RECORDS SUMMARY | 2025-04-18 09:29 | XMS_ITS | Patient Health Record ---
Author Organization [facility] Address [address] [place] [address] Support Name Relationship Address Phone KRISTEN ABRIL Guarantor Unknown [phone] Reason For Referral No Information Medications Medication SIG (Take, Route, Frequency, Duration) Notes Start Date End Date Status CeleXA 10MG 1 ORAL daily; Durati on: -3 Chuck- 01/17/2013 Active Estrace Vaginal Cream 42.5GM VAGINAL 0.5GM 2 X WEEK; Duration: -3 Chuck-MJ 01/17/2013 Active Atenolol 75MG 1 ORAL DAILY; Durati on: -3 Chuck-MJ 01/17/2013 Active Synthroid 75 MCG 1 ORAL daily; Durati on: -3 Chuck-MJ 01/17/2013 Active Problems Problem Type SNOMED Code ICD Code Onset Dates Problem Status W/U Status Risk Notes Problem Hypothyroidism (67533630) Unspecified hypothyroidism (244.9) Active confirmed Major Problem Obesity (719679520) Obesity, unspecified (278.00) Active confirmed Major Problem Depressive disorder (20587690) Depressive disorder, not elsewhere classified (311) Active confirmed Major Problem Cardiac arrhythmia (204681183) Unspecified cardiac dysrhythmia (427.9) Active confirmed Diag Problem Gynecological examination normal (748483789506380) Routine gynecological examination (V72.31) Active confirmed Diag Plan Of Treatment No Information Insurance Providers Payer Name Payer Address Payer Phone Subscriber Number Group Number Insured Name Patient Relationship to Insured Coverage Start Date Coverage End Date [employer] [place] [address] [place] [address] [id number] ABRIL PETERSON Self - patient is the insured
--- OUTSIDE RECORDS SUMMARY | 2025-04-18 09:29 | XMS_ITS | Patient Health Record ---
Author Organization [facility] Address [address] [place] [address] Care Team Providers Care Rock Breaker Name Role Phone Ya(inactive) Real SPARKS Primary Care Provider [facility] Unavailable Allergies Allergen (clinical drug ingredient) Drug/Non Drug Allergy documented on EMR Reaction Allergy Type Onset Date Status amoxicillin Amoxicillin abdominal upset Drug Allergy Active Reason For Referral No Information Medications Medication SIG (Take, Route, Fr equency, Duration) Notes Start Date End Date Status Aleve prn Active Levothyroxine Sodium Active atenolol Active Problems Problem Type SNOMED Code ICD Code Onset Dates Problem Status W/U Status Risk Notes Problem 756294091 Fatty liver (K76.0) Active confirmed Problem [id number] Abnormal ultrasound of liver (R93.2) Active confirmed Plan Of Treatment No Information Insurance Providers Payer Name Payer Address Payer Phone Subscriber Number Group Number Insured Name Patient Relationship to Insured Coverage Start Date Coverage End Date [employer] [address] [place] [address] [id number] ABRIL PETERSON Self - patient is the insured Medical (General) History Medical History History ICD Code heart palpitations Hypothyroidism psoriasis Surgical History Surgery Date(Month/Year) knee surgery left carpel tunnel right hand tonsillectomy
[2025-04-18 10:09] LABS: MANUAL DIFF FLAG NO
[2025-04-18 10:15] LABS: Hematocrit 36.4 % (37.0-47.0); Hemoglobin 11.7 g/dl (12.0-16.0); Imm Gran Abs Auto 0.05 X10*3/uL (0.00-0.03); Imm Gran Pct Auto 0.6 % (0.0-0.4); Lymphocytes Absolute Auto 1.8 X10*3/uL (1.2-4.9); Mean Corpuscular HGB Conc 32.1 g/dl (31.0-35.0); Mean Corpuscular Hemoglobin 29.5 pg (27.0-33.0); Mean Corpuscular Volume 91.7 fL (80.0-98.0); NRBC Abs Auto 0.000 X10*3/uL (0.0-0.012); NRBC Pct Auto 0.0 /100WBC (0.0-0.2); Platelet Count 278 X10*3/uL (160-400); Red Blood Count 3.97 X10*6/uL (4.20-5.50); White Blood Count 8.7 X10*3/uL (4.8-10.8)
[2025-04-18 10:28] LABS: Appearance Urine Clear; Glucose Urine UA Negative (Negative); PH 6.5 (5.0-9.0); Specific Gravity - Urine 1.015 (1.005-1.025); UMIC TRIGGER UA YES
[2025-04-18 10:44] LABS: Alanine Aminotransferase 39 U/L (0-31); Albumin Level 4.3 g/dL (3.5-5.0); Alkaline Phosphatase 70 U/L (39-117); Anion Gap 11 (12-20); Aspartate Amino Transferase 49 U/L (5-31); Blood Urea Nitrogen 12 mg/dL (9-16); Calcium 9.1 mg/dL (8.4-10.2); Carbon Dioxide 28 mmol/L (22-29); Chloride 105 mmol/L (96-108); Cholesterol 225 mg/dL (<200); Estimated Glomerular Filt Rate > 60; HDL Cholesterol 48 mg/dL (>40); Potassium 4.3 mmol/L (3.3-5.1); Sodium 140 mmol/L (135-145); Total Protein 7.5 g/dL (6.5-8.0); Triglycerides 159 mg/dL (<150)
[2025-04-18 11:40] LABS: Free T4 (Free Thyroxine) 1.03 ng/dL (0.71-1.85)
== END 2025-04-18 08:55 | disposition home or self-care (01) ==
LOC: HO.HMGCLDS 08:54
PROVIDERS: PCP Internal Medicine; Visit Provider Internal Medicine
DX: Z00.00 Encounter for general adult medical examination without abnormal findings (principal); I10 Essential (primary) hypertension; E03.9 Hypothyroidism, unspecified
CPT/HCPCS: 36415; 80053; 80061; 81001; 84439; 84443; 85025

== ENCOUNTER 2025-04-20 11:46 | Outpatient (AMB) | payer OTHER, SELFPAY ==
--- NOTE | 2025-04-20 12:05 | MHC.PC.OV ---
Vital Signs 04/20/25 12:06 Height 5 ft 7 in Weight 324 lb BMI 50.7 BP 124/70 Blood Pressure Location Lt brachial Position Sitting Respiration 14 Pulse 62 Pulse Source Pulse Oximeter Temp 98.6 F Temp Source Oral Pulse Oximetry (%) 94 Oxygen Delivery Method Room Air Intake Visit Reasons: Annual Meat And Seafood Manager Required: No Accompanied by: Self / Same As Patient Allergies amoxicillin (AMOXICILLIN) Allergy (Unknown, Verified 04/20/25 12:08) stomach upset, Sulfa (Sulfonamide Antibiotics) Allergy (Unknown, Verified 04/20/25 12:08) rash sulfamethoxazole (From Bactrim) Allergy (Unknown, Verified 04/20/25 12:08) Rash trimethoprim (From Bactrim) Allergy (Unknown, Verified 04/20/25 12:08) Rash Medication List - Last Reconciled 04/20/25 by Coral Boston MD atenolol 75 mg (3 x 25 mg) PO DAILY levothyroxine (Levoxyl) 112 mcg PO DAILY levothyroxine 100 mcg PO DAILY valacyclovir 1,000 mg PO TID Tobacco use date assessed: 04/20/25 Dental Screening Dental Screen Date: 04/20/25 Did you have a dental visit in the last 12 months?: Yes Did you have a dental problem in the last 6 months where you did not have access to dental care?: No Was dental information given to patient?: Patient has dentist HPI Annual HPI Details Pt presents for PE. Her 19-year-old cat was diagnosed with cancer and last week. Patient has been decreasing caloric intake increasing physical activity for over 6 months trying to lose weight unsuccessfully PFSH Medical History Heart palpitations Psoriasis Paronychia of finger of left hand Lumbar back pain Hyperlipidemia Annual physical exam Normal Pap smear Hypothyroidism Depression Surgical History H/O colonoscopy History of left knee surgery History of carpal tunnel surgery History of tonsillectomy Family History Father Myocardial infarction Mother Lung cancer Social History Housing: House Alcohol intake: current Alcohol intake frequency: holidays/special occasions only Patient Tobacco Use Status: Former Tobacco user e-Cigarette/Vaping Use: Never Used service: No Current occupational status: employed Current occupation: Call data center technician/rt hand Cognitive needs: No Hearing needs: No Vision needs: Yes Questionnaire PHQ-9 Over the last 2 weeks, how often have you been bothered by any of the following problems? 1. Little interest or pleasure in doing things: not at all 2. Feeling down, depressed, or hopeless: several days 3. Trouble falling or staying asleep, or sleeping too much: several days 4. Feeling tired or having little energy: several days 5. Poor appetite or overeating: several days 6. Feeling bad about yourself - or that you are a failure or have let yourself or your family down: not at all 7. Trouble concentrating on things, such as reading the newspaper or watching television: not at all 8. Moving or speaking so slowly that other people could have noticed. Or the opposite - being so fidgety or restless that you have been moving around a lot more than usual: not at all 9. Thoughts that you would be better off or of hurting yourself in some way: not at all Total score: 4 Depression Screening Interpretation: Negative Depression Screening Done: Yes 01158 - PHQ-9 Billing: Yes Source: Developed by Drs. Vick Singh, Cassidy Miller, Donald Miles and colleagues, with an educational jayda from [employer]. Thrive Questionnaire Date Thrive assessed: 04/13/25 I am a: Patient What is your living situation today?: I have a steady place to live Within the past 12 months, did the food you bought not last and you didn't have the money to get more?: Never true Within the past 12 months, did you worry whether your food would run out before you got money to buy more?: Never true Do you have trouble paying for medicines?: No Do you have trouble getting transportation to medical appointments?: No Do you have trouble paying your heating and electricity bill?: No Do you have trouble taking care of your child, family member or friend?: No Do you have trouble with day-to-day activities such as bathing, preparing meals, shopping, managing finances, etc.?: No Are you currently unemployed and looking for a job?: No Are you interested in more education?: No Please select the resources that you would like help with: None Currently or been in a relationship where the following occur: No concerns reported THRIVE Score: 0 AUDIT C Alcohol Use Questionnaire (AUDIT-C) 1. How often do you have a drink containing alcohol?: Monthly or less 2. How many drinks containing alcohol do you have on a typical day when you are drinking?: 1 or 2 3. How often do you have six or more drinks on one occasion?: Never Total Score: 1 GREGORIO-7 AMB Questionnaire GREGORIO-7 Date GREGORIO - 7 assessed: 04/20/25 Feeling nervous, anxious, or on edge: 0 = Not at all Not being able to stop or control worryin = More than half the days Worrying too much about different things: 1 = Several days Trouble relaxin = Several days Being so restless that it is hard to sit still: 0 = Not at all Becoming easily annoyed or irritable: 0 = Not at all Feeling afraid as if something awful might happen: 0 = Not at all Total GREGORIO-7 score (0-4 normal; 5-9 mild; 10-14 moderate; 15-21 severe): 4 Source: Developed by Drs. Vick Singh, Cassidy Miller, Donald Miles and colleagues, with an educational jayda from [employer]. Review of Systems Const All systems reviewed & are unremarkable except as noted in HPI and below Reports no additional complaints Eyes Reports no additional complaints ENT Reports no additional complaints Card Reports no additional complaints Resp Reports no additional complaints GI Reports no additional complaints Reports no additional complaints Physical exam (Primary Care) Vital Signs: Last Vital Signs Temp 98.6 F 04/20/25 12:06 Pulse 62 04/20/25 12:06 Resp 14 04/20/25 12:06 BP 124/70 04/20/25 12:06 Pulse Ox 94 04/20/25 12:06 Oxygen Delivery Method Room Air 04/20/25 12:06 BMI result Body Mass Index 50.7 Tobacco/Smoking Status: Tobacco use Status Tobacco use date assessed 04/20/25 04/20/25 12:11 Patient Tobacco Use Status Former Tobacco user 04/20/25 12:11 e-Cigarette/Vaping Use Never Used 04/20/25 12:11 PHQ-9: PHQ-9 Score PHQ-9: Total score 4 04/20/25 12:11 Depression Screening Interpretation: Negative Thrive Assessment: Date of Thrive Assessment Date Thrive assessed 04/13/25 04/20/25 12:11 Currently or been in a relationship where the following occur: No concerns reported Const General: no acute distress HENMT Head: Yes normal to inspection Ears: hearing grossly normal bilaterally Face and sinus: Yes normal facial exam Throat: Yes posterior oropharynx normal Eyes General: appearance normal, both eyes and all related structures Resp Effort & Inspection: normal respiratory effort Auscultation: clear to auscultation bilaterally Cardio Rhythm: regular rhythm Heart sounds: S1 normal heart sound present and S2 normal heart sound present GI Inspection: Yes normal to inspection Palpation (GI): Soft to palpation Percussion: Yes normal to percussion Auscultation: normal bowel sounds Coding Level of Care Code Est Pt Prev Care 40-64y(77703) Diagnoses Acquired hypothyroidism E03.9 Annual physical exam Z00.00 Hypertension I10 BMI 50.0-59.9, adult Z68.43 Additional Codes PHQ-9 - 99730 - PHQ-9 Billing: Yes ([id number]) Assessment & Plan Assessment & Plan (1) Acquired hypothyroidism: Code(s): E03.9 - Hypothyroidism, unspecified Category: Medical Plan: Increase levothyroxine to 112 mcg daily check TSH in 2 months (2) Annual physical exam: Code(s): Z00.00 - Encounter for general adult medical examination without abnormal findings Category: Medical Plan: Well-balanced diet increase exercise weight loss discussed with the patient she refused colonoscopy and Cologuard (3) Hypertension: Code(s): I10 - Essential (primary) hypertension Category: Medical Plan: Continue atenolol (4) BMI 50.0-59.9, adult: Code(s): Z68.43 - Body mass index [BMI] 50.0-59.9, adult Category: Medical Plan: DECREASING CALORIC INTAKE INCREASING PHYSICAL ACTIVITY DISCUSSED WITH THE PATIENT. SHE WILL CHECK WITH HER INSURANCE COVERAGE FOR GLP 1 AGONIST Orders: Orders Vitamin B12 and Folate 2 Months E03.9 - Hypothyroidism, unspecified, I10 - Essential (primary) hypertension, Z00.00 - Encounter for general adult medical examination without abnormal findings Comprehensive [place]. Panel Fast 1 Year E03.9 - Hypothyroidism, unspecified, E78.5 - Hyperlipidemia, unspecified, I10 - Essential (primary) hypertension, Z00.00 - Encounter for general adult medical examination without abnormal findings, Z68.43 - Body mass index [BMI] 50.0-59.9, adult Vitamin D 25-OH Total 1 Year E03.9 - Hypothyroidism, unspecified, E78.5 - Hyperlipidemia, unspecified, I10 - Essential (primary) hypertension, Z00.00 - Encounter for general adult medical examination without abnormal findings, Z68.43 - Body mass index [BMI] 50.0-59.9, adult TSH reflex Free T4 2 Months E03.9 - Hypothyroidism, unspecified IRON PROFILE 2 Months E03.9 - Hypothyroidism, unspecified, I10 - Essential (primary) hypertension, Z00.00 - Encounter for general adult medical examination without abnormal findings Vitamin D 25-OH Total 2 Months E03.9 - Hypothyroidism, unspecified, I10 - Essential (primary) hypertension, Z00.00 - Encounter for general adult medical examination without abnormal findings Lipid Panel 1 Year E03.9 - Hypothyroidism, unspecified, E78.5 - Hyperlipidemia, unspecified, I10 - Essential (primary) hypertension, Z00.00 - Encounter for general adult medical examination without abnormal findings, Z68.43 - Body mass index [BMI] 50.0-59.9, adult Complete Blood Count Auto Diff 1 Year E03.9 - Hypothyroidism, unspecified, E78.5 - Hyperlipidemia, unspecified, I10 - Essential (primary) hypertension, Z00.00 - Encounter for general adult medical examination without abnormal findings, Z68.43 - Body mass index [BMI] 50.0-59.9, adult TSH reflex Free T4 1 Year E03.9 - Hypothyroidism, unspecified, E78.5 - Hyperlipidemia, unspecified, I10 - Essential (primary) hypertension, Z00.00 - Encounter for general adult medical examination without abnormal findings, Z68.43 - Body mass index [BMI] 50.0-59.9, adult Vitamin B12 and Folate 1 Year E03.9 - Hypothyroidism, unspecified, E78.5 - Hyperlipidemia, unspecified, I10 - Essential (primary) hypertension, Z00.00 - Encounter for general adult medical examination without abnormal findings, Z68.43 - Body mass index [BMI] 50.0-59.9, adult Medications: New levothyroxine (Levoxyl) 112 mcg PO DAILY 90 tabs 1RF
[2025-04-20 12:06] VITALS: BP 124/70; PULSE 62; RESP 14; TEMP 37; O2SAT 94; BMI 50.7
--- OUTSIDE RECORDS SUMMARY | 2025-04-20 12:34 | XMS_ITS | Patient Health Record ---
[facility] Address [address] [place] [address] Care Team Providers Care Business Transformation Analyst Name Role Phone Real Pandya MD Primary Care Provider Susan Higginbotham Unavailable [phone] Allergies Allergen (clinical drug ingredient) Drug/Non Drug [...] Status W/U Status Risk Notes Problem Bursitis (59261827) Bursitis (727.3) Active confirmed Problem Calcaneal spur (08887183) Calcaneal spur (726.73) Active confirmed Problem Myositis (83378532) Myositis (729.1) Active confirmed Problem Pain in limb (00621991) Pain in Limb (729.5) Active confirmed Problem Plantar fasciitis (638900726) Plantar Fasciitis (728.71) Active confirmed Plan Of Treatment Pending Test Test Name Order Date [id number] TENDON SHEATH/LIGAMENT 0 10/12/2014 Insurance Providers Payer Name Payer Address Payer Phone Subscriber Number Group Number Insured Name Patient Relationship to Insured Coverage Start Date Coverage End Date [facility] [address] [place] [address] [id number] Lola Hou Self - patient is the insured Medical (General) History Medical History History ICD Code Eczema Thyroid disorder Chicken pox Measles Surgical History Surgery Date(Month/Year) tonsillectomy carpal tunnel right hand 05/2013 Left knee sx 12/27/2014
--- OUTSIDE RECORDS SUMMARY | 2025-04-20 12:35 | XMS_ITS | Patient Health Record ---
Author Organization [facility] Address [address] [place] [address] Support Name Relationship Address Phone KRISTEN ABRIL Guarantor Unknown [phone] Reason For Referral No Information Medications Medication [...] Status W/U Status Risk Notes Problem Hypothyroidism (17145808) Unspecified hypothyroidism (244.9) Active confirmed Major Problem Obesity (642067161) Obesity, unspecified (278.00) Active confirmed Major Problem Depressive disorder (90071168) Depressive disorder, not elsewhere classified (311) Active confirmed Major Problem Cardiac arrhythmia (878764214) Unspecified cardiac dysrhythmia (427.9) Active confirmed Diag Problem Gynecological examination normal (104070523871775) Routine gynecological examination (V72.31) Active confirmed Diag Plan Of Treatment No Information Insurance Providers Payer Name Payer Address Payer Phone Subscriber Number Group Number Insured Name Patient Relationship to Insured Coverage Start Date Coverage End Date [employer] [address] [place] [address] [id number] ABRIL PETERSON Self - patient is the insured
--- OUTSIDE RECORDS SUMMARY | 2025-04-20 12:35 | XMS_ITS | Patient Health Record ---
Author Organization [facility] Address [address] [place] [address] Care Team Providers Care Gun Fertilizer Name Role Phone Ya(inactive) Real SPARKS Primary Care Provider [facility] Ayala Jr Unavailable [phone] Allergies Allergen (clinical drug ingredient) Drug/Non Drug [...] Problem Status W/U Status Risk Notes Problem 737787207 Fatty liver (K76.0) Active confirmed Problem [id number] Abnormal ultrasound of liver (R93.2) Active confirmed Plan Of Treatment No Information Insurance Providers Payer Name Payer Address Payer Phone Subscriber Number Group Number Insured Name Patient Relationship to Insured Coverage Start Date Coverage End Date [employer] [address] [place] [address] [phone] [id number] ABRIL PETERSON Self - patient is the insured Medical (General) History Medical History History ICD Code heart palpitations Hypothyroidism psoriasis Surgical History Surgery Date(Month/Year) knee surgery left carpel tunnel right hand tonsillectomy
== END 2025-04-20 12:53 | disposition home or self-care (01) ==
LOC: HO.HMCC 11:47
PROVIDERS: PCP Internal Medicine; Visit Provider Internal Medicine
DX: E03.9 Hypothyroidism, unspecified (principal); Z00.00 Encounter for general adult medical examination without abnormal findings; I10 Essential (primary) hypertension; Z68.43 Body mass index [BMI] 50.0-59.9, adult

== ENCOUNTER → 2025-04-20 11:46 | Outpatient (BNVA) | payer OTHER, SELFPAY | PROVIDERS: PCP Internal Medicine; Visit Provider Internal Medicine | DX: Z00.00 Encounter for general adult medical examination without abnormal findings (principal); E03.9 Hypothyroidism, unspecified; I10 Essential (primary) hypertension; E78.5 Hyperlipidemia, unspecified | CPT/HCPCS: 96127 ==